=== PATIENT | female | born 2000 | race American Indian/Alaskan Native ===

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

== ENCOUNTER 2020-04-12 13:56 | Emergency (ER) | payer SELFPAY ==
[2020-04-12 14:07] VITALS: BP 149/52
[2020-04-12] MEDS ORDERED: IBUPROFEN 800 MG TAB PO ONE (15:20)
--- NOTE | 2020-04-12 16:30 | Emergency Department Report ---
Upper Extremity - HPI Chief Complaint: Extremity Injury, Upper Stated Complaint: Patient states she woke up this morning with her left arm hurting. She denies any falls or traumas denies neck pain. Time Seen by Provider: 04/12/20 15:10 Upper Extremity: Left Arm (upper arm ), Left Forearm Occurred When: Today Severity: moderate Symptoms: Yes Pain with Movement, Yes Limited Range of Movement, No Deformity, No Numbness, No Weakness, No Swelling, No Bruising/Ecchymosis, No Laceration or Abrasion ED Review of Systems ROS: Stated complaint: SHARP PAIN LEFT SIDE AND HAND Other details as noted in HPI Comment: All other systems reviewed and negative Constitutional: denies: chills, fever, malaise ENT: denies: ear pain, hearing loss Cardiovascular: denies: chest pain Endocrine: denies: excessive sweating, intolerance to cold, intolerance to heat, increased hunger, increased thirst, increased urine, unexplained weight gain Gastrointestinal: denies: abdominal pain, nausea, vomiting Musculoskeletal: other (left upper and lower arm pain ) Skin: denies: rash, lesions Neurological: denies: headache, weakness, numbness, paresthesias, abnormal gait Hematological/Lymphatic: denies: as per HPI, easy bruising ED Past Medical Hx - Past Medical History Previous Medical History?: No - Surgical History Past Surgical History?: No - Social History Smoking Status: Never Smoker Substance Use Type: Alcohol - Medications Home Medications: Home Medications Medication Instructions Recorded Confirmed Last Taken Type Ibuprofen [Motrin] 600 mg PO Q8H PRN #30 tablet 09/18/14 Unknown Rx Sulfamethoxazole/Trimethoprim 1 each PO BID #14 tablet 09/18/14 Unknown Rx [Bactrim Ds] Ibuprofen [Motrin] 600 mg PO Q8H PRN #20 tablet 04/12/20 Unknown Rx Upper Extremity Exam - Exam General: Vital signs noted. No distress. Alert and acting appropriately. Head and Torso: No HEENT Abnormality, No Neck Tenderness, No Chest/Lungs Abnormality, No Abdominal Tenderness, No Back Tenderness Shoulder Exam: No Shoulder Tenderness, No Clavicle Tenderness, No Normal Range of Motion in Shoulder, No Shoulder Deformity, No AC Joint Tenderness Arm Exam: Yes Arm/Humerus Tenderness (tenderness to upper arm and forearm. No swelling no deformity, skin intact. Able to raise arms above her head. 2+ Radial pulse. sensation intact.), No Arm Deformity Elbow: Yes Normal Range of Motion in Elbow, No Elbow Tenderness, No Elbow Deformity Forearm: Yes Forearm Tenderness, Yes Pain with Pronation, Yes Pain with Supination, No Forearm Deformity Wrist: Yes Normal ROM in Wrist, No Wrist Tenderness, No Wrist Deformity, No Snuffbox Tenderness, No Pain with Axial Thumb Compression Hand: No Hand Tenderness, No Hand Deformity, No Digit Tenderness, No Normal ROM in Digit(s), No Digit(s) Deformity, No Tendon Dysfunction CMS Exam: Yes Normal Distal Pulses, Yes Normal Capillary Refill, Yes Normal Distal Sensation, No Broken Skin ED Course Vital Signs 04/12/20 14:04 Temperature 98.6 F Pulse Rate 80 Respiratory 20 Rate Blood Pressure 149/52 O2 Sat by Pulse 100 Oximetry - Reevaluation(s) Reevaluation #2: 04/12/20 16:59 Patient reports decreased pain ibuprofen ED Medical Decision Making - Radiology Data Radiology results: report reviewed X-ray of left humerus and left forearm Negative study Critical Care Time: No Critical care attestation.: If time is entered above; I have spent that time in minutes in the direct care of this critically ill patient, excluding procedure time. ED Disposition Clinical Impression: Left arm pain Disposition: DC-01 TO HOME OR SELFCARE Is pt being admited?: No Does the pt Need Aspirin: No Condition: Stable Instructions: Arthralgia (ED) Additional Instructions: Take Motrin as prescribed. Apply warm compress three times a day. Follow up with your primary care Physcian in 3-5 days if no improvement or worsening symptoms. Prescriptions: Ibuprofen [Motrin] 600 mg PO Q8H PRN #20 tablet PRN Reason: Pain Referrals: PRIMARY CARE, [Primary Care Provider] - 3-5 Days Time of Disposition: 16:48
--- NOTE | 2020-04-12 16:37 | XRay Report ---
LEFT FOREARM 2 VIEWS 1545 INDICATION: left arm pain and decreased ROM COMPARISON: None available. FINDINGS: Negative study LEFT HUMERUS 2 VIEWS 1549 INDICATION: left arm pain and decreased ROM COMPARISON: None available. FINDINGS: Negative study Signer Name: David Coto MD Signed: 04/12/2020 4:33 PM Workstation Name: [id number]
== END 2020-04-12 17:45 | disposition home or self-care (01) ==
LOC: ED 13:56
DX: M79.602 Pain in left arm (principal); Z79.899 Other long term (current) drug therapy; Z91.018 Allergy to other foods; Z88.8 Allergy status to other drugs, medicaments and biological substances
CPT/HCPCS: 99283